=== PATIENT | male | born 1965 | race Caucasian/White ===

== ENCOUNTER 2016-02-17 08:17 | Day surgery (SDC) | payer OTHER ==
[~2016-02-17] VITALS: Ht 172.7 cm; Wt 94.7 kg
[~2016-02-17 08:17] MED LIST: CHLO25CA9 PO; FOLI-49 PO; GABA300C16 PO; IBUP-1542 PO; MAG355OR14 PO; MECL25TA2 PO; NAPR-260 PO; THIA100T56 PO
[2016-02-17 09:36] VITALS: Ht 172.7 cm; Wt 94.7 kg
[2016-02-17 10:00] VITALS: BP 143/89; PULSE 59; RESP 24
[2016-02-17] MEDS ORDERED: PROPOFOL 40 ML ONE (10:16)
[2016-02-17 10:55] VITALS: BP 130/83; PULSE 62; RESP 15
--- NOTE | 2016-02-18 06:33 | GILP ---
DATE OF PROCEDURE: NAME OF PROCEDURE: Esophagogastroduodenoscopy. PREOPERATIVE DIAGNOSIS: Patient presents with a history of cirrhosis, a history of nonspecific abdo carlo discomfort. Rule out peptic ulcer disease, rule out esophageal varices. POSTOPERATIVE DIAGNOSES: 1. No esophageal varices noted. 2. A prepyloric superficial ulcer was noted. 3. Patchy gastritis was noted. DESCRIPTION OF PROCEDURE: After informed written consent was obtained, the patient was asked to lie on the left lateral side. Intravenous anesthesia was given by the anesthesiologist. When the molly ent became somnolent the Olympus video upper endoscope was introduced into the oropharynx, then into the esophagus. The esophagus appeared normal, with no significant varices. The upper esophagus carlos wed evidence of one small 3-4 cm long faint varix. However the middle and lower esophagus did not s how any varices. The scope at this time was advanced into the stomach. A superficial ulcer was loc ated on a fold in the prepyloric area. Two small biopsies were obtained. Patchy areas of mild eryth gigi were noted along the mucosal surface of the stomach. Biopsy was done from the antrum and the le sser curvature. Mucosa of the duodenum up to the end of the third portion appeared normal. The end oscope at this time was withdrawn. On the way out, no additional abnormalities were detected and procedure was terminated. PLAN: Recommend Nexium 40-mg capsules, 1 a day in the morning before breakfast, for 2 months. Dictated By: ALEJANDRA POLANCO/SONA Conf#: [id number] DID#: [id number]
== END 2016-02-17 12:05 | disposition home or self-care (01) ==
LOC: GIL 08:17
PROVIDERS: ATTEND Internal Medicine Gastroenterology
DX: K29.60 Other gastritis without bleeding (principal)
CPT/HCPCS: 43239; 88305; 88312; Z7610

== ENCOUNTER 2016-04-16 06:11 | Emergency (ER) | payer OTHER ==
[~2016-04-16] VITALS: Ht 172.7 cm; Wt 95.4 kg
[~2016-04-16 06:11] MED LIST changes: -IBUP-1542 PO; -MECL25TA2 PO; -NAPR-260 PO
[2016-04-16 06:14] VITALS: Ht 172.7 cm; Wt 95.4 kg
[2016-04-16] MEDS ORDERED: CHLO10CA6 PO (06:49)
[2016-04-16] MEDS ORDERED: TUCKS PR (06:50)
[2016-04-16 06:55] VITALS: BP 151/95; PULSE 94; RESP 17; TEMP 98.1
--- NOTE | 2016-04-16 06:56 | ERD ---
ER Documentation Chief Complaint Date/Time DATE: 04/16/16 TIME: 06:42 Chief Complaint ALCOHOL WITHDRAWAL AND C/O HIS HEMORROIDS FLARING UP HPI 50-year-old male presents to the emergency department with 2 separate issues. Primarily, patient's main complaint is that he is complaining of hemorrhoid pain. He's had hemorrhoids for a few days with bleeding noted. He continues to have severe discomfort in that area that he rates as a 6/10. He reports ongoing bleeding. Patient reports no fevers chills or purulent drainage. Patient's second issue is that he states he's been jerking heavily to try to kill the pain of his hemorrhoids. He states he's having mild shakes with his last drink approximately 2 days ago. He denies seizures. Patient has had alcohol withdrawal previously and this feels mild to him. ROS All systems reviewed and are negative except as per history of present illness. Medications Home Meds Active Scripts Hola Montgomery* (Tucks* Pads) 40 Pad Pad, 1 PAD VA BID for PAIN, #40 PAD Prov:TRACEY REYES 04/16/16 Chlordiazepoxide* (Chlordiazepoxide*) 10 Mg Capsule, 10 MG PO TID for CONTROL WITHDRAWAL SYMPTOMS, #10 CAP Prov:TRACEY REYES 04/16/16 Mag Hydrox/Al Hydrox/Simeth (Maalox Advanced Suspension) 355 Ml Oral.susp, 2 TSP PO TID, #24 OZ Prov:NICOLLE COLLADO MD 01/21/16 Chlordiazepoxide* (Chlordiazepoxide*) 25 Mg Capsule, 25 MG PO Q8 Y for CONTROL WITHDRAWAL SYMPTOMS, #15 CAP Prov:NICOLLE COLLADO MD 01/21/16 Reported Medications Thiamine* (Vitamin B-1*) 100 Mg Tablet, 100 MG PO DAILY, TAB 07/28/15 Gabapentin* (Gabapentin*) 300 Mg Capsule, 300 MG PO TID, #90 CAP 07/28/15 Folic Acid* (Folic Acid*) 1 Mg Tablet, 1 MG PO DAILY, TAB 07/28/15 Allergies Allergies: Coded Allergies: No Known Allergy (Unverified , 10/26/15) PMhx/Soc Anesthesia Reaction: No 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 EOMI. There is no scleral icterus. NECK: C-spine is soft and supple, there is no meningismus. There is no cervical lymphadenopathy. LUNGS: Clear to auscultation bilaterally. There are no rales, wheezes or rhonchi. HEART: Regular rate and rhythm, no murmurs, clicks, rubs or gallops. ABDOMEN: Soft, non-tender, non-distended. There are bowel sounds in all four quadrants. No rebound or guarding. EXTREMITIES: There is no peripheral cyanosis or edema. No focal swelling or erythema. NEURO: The patient moves all four extremities with 5/5 strength. Cranial nerves II - XII are intact. Normal gait. Alert and oriented. There is minimal tremor noted with no asterixis SKIN: There is no apparent rash or petechiae. Patient has an external hemorrhoid noted with no evidence of abscess. There is no active bleeding. HEME/LYMPHATIC: There is no evidence of excessive bruising or lymphedema. PSYCHIATRIC: The patient does not appear anxious or depressed. Procedures/MDM Patient was taken to a room, seen and evaluated. Comfort measures were initiated. MEDICAL DECISION MAKIN-year-old male sent with 2 separate issues. From the standpoint of his hemorrhoids, I will be treating supportively and referred to a surgeon for outpatient hemorrhoidectomy. From the standpoint of his alcohol issues, he is in mild withdrawal with no signs of delirium tremens and will be treated with outpatient benzodiazepines. Overall, patient appears to be clinically well and appropriate for outpatient care. Departure Diagnosis: Primary Impression: Alcohol withdrawal syndrome Additional Impression: Acute hemorrhoid Condition: Stable Patient Instructions: Treating Hemorrhoids: Self-Care, Alcohol Withdrawal Referrals: [facility] (PCP) MARIA ELENA BORJAS MD Additional Instructions: Do not drink alcohol. Return for any problems or concerns TRACEY REYES Apr 16, 2016 06:56
== END 2016-04-16 07:11 | disposition home or self-care (01) ==
LOC: E/R 06:11
DX: F10.239 Alcohol dependence with withdrawal, unspecified (principal); K64.4 Residual hemorrhoidal skin tags; R40.2142 Coma scale, eyes open, spontaneous, at arrival to emergency department; R40.2362 Coma scale, best motor response, obeys commands, at arrival to emergency department; R40.2252 Coma scale, best verbal response, oriented, at arrival to emergency department
CPT/HCPCS: 99283

== ENCOUNTER 2016-04-18 04:03 | Emergency (ER) | payer OTHER ==
[~2016-04-18] VITALS: Ht 172.7 cm; Wt 99.5 kg
[~2016-04-18 04:03] MED LIST changes: +CHLO10CA6 PO; +TUCKS PR
[2016-04-18 04:07] VITALS: Ht 172.7 cm; Wt 99.5 kg
[2016-04-18] MEDS ORDERED: CHLO25CA9 PO ×2 (04:52→04:54)
--- NOTE | 2016-04-18 04:58 | ERD ---
ER Documentation Chief Complaint Date/Time DATE: 04/18/16 TIME: 04:55 Chief Complaint ETOH withdrawal. Drank Alcohol 1600 HPI 50-year-old male presents to emergency department for complaints of insomnia and shaking. Patient was trying to stop drinking alcohol, stating that he has withdrawal symptoms. Patient was seen here in the emergency department 2 days ago, was given Librium, states that the doses were low and it has not been helping him, he ran out of the medicines, wants more medications. At this time, patient does not have any hallucination, did not have any seizures. Patient does not have any shortness breath or chest pain. Patient does not have any other symptoms. Patient's last drink was yesterday afternoon to control his symptoms. ROS All systems reviewed and are negative except as per history of present illness. Medications Home Meds Active Scripts Chlordiazepoxide* (Chlordiazepoxide*) 25 Mg Capsule, 25 MG PO Q8 Y for CONTROL WITHDRAWAL SYMPTOMS, #3 CAP Prov:KRISTY FLORES TEACHING SUPERVISOR 04/18/16 Hola Montgomery* (Tucks* Pads) 40 Pad Pad, 1 PAD DE BID for PAIN, #40 PAD Prov:TRACEY REYES 04/16/16 Chlordiazepoxide* (Chlordiazepoxide*) 10 Mg Capsule, 10 MG PO TID for CONTROL WITHDRAWAL SYMPTOMS, #10 CAP Prov:TRACEY REYES 04/16/16 Mag Hydrox/Al Hydrox/Simeth (Maalox Advanced Suspension) 355 Ml Oral.susp, 2 TSP PO TID, #24 OZ Prov:NICOLLE COLLADO MD 01/21/16 Chlordiazepoxide* (Chlordiazepoxide*) 25 Mg Capsule, 25 MG PO Q8 Y for CONTROL WITHDRAWAL SYMPTOMS, #15 CAP Prov:NICOLLE COLLADO MD 01/21/16 Reported Medications Thiamine* (Vitamin B-1*) 100 Mg Tablet, 100 MG PO DAILY, TAB 07/28/15 Gabapentin* (Gabapentin*) 300 Mg Capsule, 300 MG PO TID, #90 CAP 07/28/15 Folic Acid* (Folic Acid*) 1 Mg Tablet, 1 MG PO DAILY, TAB 07/28/15 Allergies Allergies: Coded Allergies: No Known Allergy (Unverified , 10/26/15) PMhx/Soc Anesthesia Reaction: No 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 CHEST: Clear to auscultation bilaterally. There are no rales, wheezes or rhonchi. HEART: Regular rate and rhythm. No murmurs, clicks, rubs or gallops. No S3 or S4. ABDOMEN: Soft, nontender and nondistended. Good bowel sounds. No rebound or guarding. No gross peritonitis. No gross organomegaly or masses. No Ramirez sign or McBurney point tenderness. BACK: No midline or flank tenderness. EXTREMITIES: Equal pulses bilaterally. There is no peripheral clubbing, cyanosis or edema. No focal swelling or erythema. Full range of motion. Grossly neurovascularly intact. NEURO: Alert and oriented. Cranial nerves 2-12 intact. Motor strength in all 4 extremities with 5/5 strength. Sensation grossly intact. Normal speech and gait. SKIN: There is no apparent rash or petechia. The skin is warm and dry. HEMATOLOGIC AND LYMPHATIC: There is no evidence of excessive bruising or lymphedema. No gross cervical, axillary, or inguinal lymphadenopathy. Procedures/MDM Medical decision making: Patient symptoms at this time consistent with alcohol withdrawal, at this time, no symptoms of delirium tremens, and symptoms of any seizures, symptoms of neurologic emergencies at this time. Patient was given 3 pills of Librium, was advised to seek alcohol detoxification or alcohol withdrawal management, patient was given resources were to go, at this time, patient is stable patient does not have any symptoms of hemodynamic instability. Patient is ambulatory, walks steady gait, coherent, verbalized understanding with instructions, should return to ER precautions for delirium tremens symptoms. Departure Diagnosis: Primary Impression: Alcohol withdrawal Complication of substance-induced condition: uncomplicated Qualified Code: F10.230 - Alcohol withdrawal, uncomplicated Condition: Stable Patient Instructions: Alcohol Withdrawal KRISTY FLORES NP Apr 18, 2016 04:58
== END 2016-04-18 05:11 | disposition home or self-care (01) ==
LOC: FTE 04:03
DX: F10.230 Alcohol dependence with withdrawal, uncomplicated (principal)
CPT/HCPCS: 99283

== ENCOUNTER 2016-07-10 06:26 | Emergency (ER) | payer OTHER ==
[~2016-07-10] VITALS: Ht 162.6 cm; Wt 80.0 kg
[2016-07-10 06:28] VITALS: Ht 162.6 cm; Wt 80.0 kg
[2016-07-10] MEDS ORDERED: LORAZEPAM 2 MG INJ IM ONE (07:00)
[2016-07-10] MEDS ORDERED: CHLO25CA9 PO (07:48)
--- NOTE | 2016-07-10 07:48 | ERD ---
ER Documentation Chief Complaint Date/Time DATE: 07/10/16 TIME: 07:47 Chief Complaint etoh withdrawal, last drink yesterday,has shakes HPI 50-year-old male here saying that he is withdrawing from alcohol. He says he feels shaky. His last drink was yesterday. He denies auditory or visual hallucinations. Denies suicidal homicidal ideation. ROS All systems reviewed and are negative except as per history of present illness. Medications Home Meds Active Scripts Chlordiazepoxide* (Chlordiazepoxide*) 25 Mg Capsule, 25 MG PO Q8 Y for CONTROL WITHDRAWAL SYMPTOMS, #3 CAP Prov:KRISTY FLORES REFRIGERATION OPERATOR 04/18/16 Witch Valentina* (Tucks* Pads) 40 Pad Pad, 1 PAD SC BID for PAIN, #40 PAD Prov:TRACEY REYES 04/16/16 Chlordiazepoxide* (Chlordiazepoxide*) 10 Mg Capsule, 10 MG PO TID for CONTROL WITHDRAWAL SYMPTOMS, #10 CAP Prov:TRACEY REYES 04/16/16 Mag Hydrox/Al Hydrox/Simeth (Maalox Advanced Suspension) 355 Ml Oral.susp, 2 TSP PO TID, #24 OZ Prov:NICOLLE COLLADO MD 01/21/16 Chlordiazepoxide* (Chlordiazepoxide*) 25 Mg Capsule, 25 MG PO Q8 Y for CONTROL WITHDRAWAL SYMPTOMS, #15 CAP Prov:NICOLLE COLLADO MD 01/21/16 Reported Medications Thiamine* (Vitamin B-1*) 100 Mg Tablet, 100 MG PO DAILY, TAB 07/28/15 Gabapentin* (Gabapentin*) 300 Mg Capsule, 300 MG PO TID, #90 CAP 07/28/15 Folic Acid* (Folic Acid*) 1 Mg Tablet, 1 MG PO DAILY, TAB 07/28/15 Allergies Allergies: Coded Allergies: No Known Allergy (Unverified , 10/26/15) PMhx/Soc History of Surgery: Yes (colon resection, appendectomy, cholecystectomy) Anesthesia Reaction: No 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 Neck: Full range of motion..~ No meningismus. Resp: Clear to auscultation bilaterally Cardio: Regular rate and rhythm, no murmurs Abd: Soft, non tender, non distended. Normal bowel sounds Skin: No petechiae or rashes Back: No midline or flank tenderness Ext: No cyanosis, or edema Neur: Awake and alert Psych: Normal Mood and Affect Results 24 hrs Current Medications Medications (Trade) Dose Ordered Sig/Sandy Route PRN Reason Start Time Stop Time Status Last Admin Dose Admin Lorazepam (Ativan) 2 mg ONCE ONCE IM 07/10/16 07:00 07/10/16 07:01 DC 07/10/16 06:42 Procedures/MDM Medical decision-makin-year-old male here with alcohol withdrawal symptoms. Treated with Ativan with good response. Patient will be discharged home with [facility]. Given referrals for outpatient treatment centers. Departure Diagnosis: Primary Impression: Alcohol withdrawal syndrome Complication of substance-induced condition: uncomplicated Qualified Code: F10.230 - Alcohol withdrawal syndrome, uncomplicated Condition: Stable WALT RÍOS July 10, 2016 07:48
[2016-07-10 07:57] VITALS: BP 141/85; PULSE 78; RESP 18
== END 2016-07-10 08:01 | disposition home or self-care (01) ==
LOC: E/R 06:26
DX: F10.230 Alcohol dependence with withdrawal, uncomplicated (principal)
CPT/HCPCS: 96372; J2060; Z7502

== ENCOUNTER 2017-09-07 06:11 | Emergency (ER) | END 2017-09-07 07:15 | disposition home or self-care (01) ==

== ENCOUNTER 2018-05-27 15:05 | Emergency (ER) | payer SELFPAY ==
[~2018-05-27] VITALS: Ht 177.8 cm; Wt 95.6 kg
[~2018-05-27 15:05] MED LIST changes: +LORA1TAB PO
[2018-05-27 15:07] VITALS: Ht 177.8 cm; Wt 95.6 kg
--- NOTE | 2018-05-27 15:57 | ERD ---
ER Documentation Chief Complaint Chief Complaint intermittent nose bleeding x last night HPI 52-year-old male with past medical history of EtOH abuse,? Liver disease presents with epistaxis. Patient says he had a persistent dry cough and had first episode of nosebleed last night which lasted approximately 10 minutes. Had another episode around 2:20 PM which lasted about 5 minutes. Prior to these episodes patient states his been having a persistent dry cough after having flulike symptoms several days prior which have since resolved. States he has some type of liver disease and is followed by specialist but is unable to specify the type of liver disease. But he does have a history of heavy drinking but states he did no longer drinks alcohol. Denies any recent EtOH or drug abuse. Is not on any hepatotoxic medications. He otherwise is without complaint. ROS All systems reviewed and are negative except as per history of present illness. Medications Home Meds Active Scripts Guaifenesin* (Robitussin*) 100 Mg/5 Ml Syrup, 200 MG PO Q6H PRN for COUGH for 7 Days, ML Prov:IRIS SALAZAR PA-C 05/27/18 Lorazepam* (Lorazepam*) 1 Mg Tablet, 1 MG PO Q8H PRN for ANXIETY, #10 TAB Prov:DINA DORADO MD 09/07/17 Chlordiazepoxide* (Chlordiazepoxide*) 25 Mg Capsule, 25 MG PO Q8, #60 CAP Prov:WALT RÍOS 07/10/16 Chlordiazepoxide* (Chlordiazepoxide*) 25 Mg Capsule, 25 MG PO Q8 PRN for CONTROL WITHDRAWAL SYMPTOMS, #3 CAP Prov:KRISTY FLORES NP 04/18/16 Hola Montgomery* (Tucks* Pads) 40 Pad Pad, 1 PAD OR BID for PAIN, #40 PAD Prov:TRACEY REYES 04/16/16 Chlordiazepoxide* (Chlordiazepoxide*) 10 Mg Capsule, 10 MG PO TID for CONTROL WITHDRAWAL SYMPTOMS, #10 CAP Prov:TRACEY REYES 04/16/16 Mag Hydrox/Al Hydrox/Simeth (Maalox Advanced Suspension) 355 Ml Oral.susp, 2 TSP PO TID, #24 OZ Prov:NICOLLE COLLADO MD 01/21/16 Chlordiazepoxide* (Chlordiazepoxide*) 25 Mg Capsule, 25 MG PO Q8 PRN for CONTROL WITHDRAWAL SYMPTOMS, #15 CAP Prov:NICOLLE COLLADO MD 01/21/16 Reported Medications Thiamine* (Vitamin B-1*) 100 Mg Tablet, 100 MG PO DAILY, TAB 07/28/15 Gabapentin* (Gabapentin*) 300 Mg Capsule, 300 MG PO TID, #90 CAP 07/28/15 Folic Acid* (Folic Acid*) 1 Mg Tablet, 1 MG PO DAILY, TAB 07/28/15 Allergies Allergies: Coded Allergies: No Known Allergy (Unverified , 10/26/15) PMhx/Soc History of Surgery: Yes (colon resection, appendectomy, cholecystectomy) Anesthesia Reaction: No 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) Hx Respiratory Disorders: No Hx Cardiac Disorders: No Hx Psychiatric Problems: No Hx Miscellaneous Medical Probl: Yes (alcohol abuse) Hx Alcohol Use: Yes (hx of ETOH- drinks daily (last drink last night at 2200)) Hx Substance Use: No Hx Tobacco Use: No Smoking Status: Never smoker Physical Exam Vitals Vital Signs Date Temp Pulse Resp B/P (MAP) Pulse Ox O2 O2 Flow FiO2 Time Delivery Rate 05/27/18 99.0 86 19 153/90 96 15:07 (111) Physical Exam Const: No acute distress Head: Atraumatic Eyes: Normal Conjunctiva ENT: Normal External Ears, R nostril with some dried residual blood in anterior chamber, L nostril unremarkable Neck: Full range of motion. No meningismus. Resp: Clear to auscultation bilaterally Cardio: Regular rate and rhythm, no murmurs Abd: Soft, non tender, non distended. Normal bowel sounds Skin: No petechiae or rashes Back: No midline or flank tenderness Ext: No cyanosis, or edema Neur: Awake and alert Psych: Normal Mood and Affect Procedures/MDM 52-year-old male who presents with epistaxis. Patient not actively bleeding from nose at time of examination and hemodynamically stable. Doubt any etiology of nosebleed warranting further emergent evaluation and treatment. Nosebleed is unilateral and localized to the right nostril is likely anterior given persistent coughing. Exam without concerning findings. Not on any blood thinner medications. Patient reports history of unspecified liver disease (former EtOH abuse) but doubt this is contributing to his bleeding. I have advised the patient to fo llow-up with his PMD and GI specialist. Have advised him regarding strict return precautions if he has protracted bleeding or other concerning symptoms. Plan: Cough suppressant, PMD and GI follow-up for reported liver disease, strict return precautions DISPOSITION PLAN: We discussed follow up with the patient's primary care doctor within 24 to 48 hours. Patient counseled regarding my diagnostic impression and care plan. Prior to discharge all questions answered. Pt agrees with treatment plan and understa nds strict return precautions. Precautionary instructions provided including instructions to return to the ER if not improving or for any worsening or changing symptoms or concerns. Departure Condition: Stable Patient Instructions: Epistaxis (Adult) [facility]errals[facility] Additional Instructions: Follow-up with your MD in 2-3 days. If systems persist with protracted bleeding that does not stop with recommended interventions return to the emergency room for further evaluation. You should follow-up with your GI specialist provider for continued care of reported liver disease. IRIS SALAZAR PA-C May 27, 2018 15:57
[2018-05-27] MEDS ORDERED: GUAI-637 PO (15:59)
[2018-05-27 16:15] VITALS: BP 138/90; PULSE 87; RESP 16
== END 2018-05-27 16:15 | disposition home or self-care (01) ==
LOC: FTE 15:05
DX: R04.0 Epistaxis (principal)
CPT/HCPCS: 99282